=== PATIENT | female | born 1990 | race Two or more races ===

== ENCOUNTER 2020-07-19 19:23 | Emergency (ER) | payer OTHER ==
[~2020-07-19] VITALS: Ht 157.5 cm; Wt 65.8 kg
--- NOTE | 2020-07-19 19:30 | NUR ---
pt came to the er c/o lightheadedness, dizziness, and palpitations x 1 day. pt received covid vaccine x2 days ago. pt aaox4, respirations even and unlabored on ra w/ nad noted. pt connected to the color television console monitor and pox
[2020-07-19] MEDS ORDERED: diphenhydrAMINE HCL 50 MG/ML VIAL ONE (19:39)
--- NOTE | 2020-07-19 19:57 | NUR ---
BLOOD COLLECTED AND SENT TO LAB
--- NOTE | 2020-07-19 19:58 | NUR ---
COVID SWAB COLLECTED AND SENT TO LAB
[2020-07-19] MEDS ORDERED: diphenhydrAMINE HCL 50 MG/ML VIAL IV ONE (20:00)
[2020-07-19] MEDS ORDERED: IV NS 0.9% 1,000 ML BAG IV ONE (20:00)
[2020-07-19 20:38] LABS: BASOPHILS % (AUTO) 0.6 % (0.0-2.0); EOSINOPHILS % (AUTO) 2.4 % (0.0-6.0); HEMATOCRIT 43 % (33-45); HEMOGLOBIN 14.3 g/dL (11.5-14.8); LYMPHOCYTES # (AUTO) 2.4 /CMM (0.8-4.8); LYMPHOCYTES % (AUTO) 33.8 % (20.0-44.0); MEAN CORPUSCULAR HGB CONC 33 g/dl (31.0-36.0); MEAN CORPUSCULAR VOLUME 87 fL (82-100); MONOCYTES # (AUTO) 0.8 /CMM (0.1-1.30); MONOCYTES % (AUTO) 10.9 % (2.0-12.0); NEUTROPHILS # (AUTO) 3.7 /CMM (1.8-8.9); NEUTROPHILS % (AUTO) 52.3 % (43.0-81.0); PLATELET COUNT (AUTO) 209 /CMM (150-450); RED BLOOD CELL COUNT(AUTO) 4.93 MIL/uL (4.0-5.2)
[2020-07-19 20:43] LABS: CREATININE 0.7 mg/dL (0.6-1.3); POTASSIUM 3.4 mmol/L (3.5-5.1)
[2020-07-19 20:50] LABS: ALBUMIN 3.8 g/dL (3.4-5.0); BILIRUBIN,DIRECT 0.1 mg/dL (0.0-0.2); BILIRUBIN,TOTAL 0.3 mg/dL (0.2-1.0); TOTAL PROTEIN, SERUM 7.9 g/dL (6.4-8.2)
[2020-07-19] MEDS ORDERED: DIPH25TA25 PO (20:51)
[2020-07-19 21:38] VITALS: BP 138/84
== END 2020-07-19 21:40 | disposition home or self-care (01) ==
LOC: ER 19:23
DX: R42 Dizziness and giddiness (principal); Z20.822 Contact with and (suspected) exposure to COVID-19; R00.0 Tachycardia, unspecified; R74.01 Elevation of levels of liver transaminase levels; R03.0 Elevated blood-pressure reading, without diagnosis of hypertension; Z86.16 Personal history of COVID-19
CPT/HCPCS: 36415; 80048; 80076; 82962; 84703; 85025; 93005; 96361; 96374; 99284; C9803; J1200; J7030; U0003

== ENCOUNTER 2020-10-05 11:37 | Emergency (ER) | payer OTHER ==
[~2020-10-05] VITALS: Ht 154.9 cm; Wt 58.1 kg
[~2020-10-05 11:37] MED LIST: DIPH25TA25 PO
[2020-10-05 11:47] VITALS: BP 126/76
--- NOTE | 2020-10-05 12:17 | NUR ---
Patient discharged to home in stable condition. Written and verbal after care instructions given. Patient verbalizes understanding of instruction.
--- NOTE | 2020-10-05 12:17 | NUR ---
covid 19 swab collected and sent to lab
== END 2020-10-05 12:18 | disposition home or self-care (01) ==
LOC: ER 11:46
DX: J02.9 Acute pharyngitis, unspecified (principal); R51.9 Headache, unspecified; Z20.822 Contact with and (suspected) exposure to COVID-19
CPT/HCPCS: 87426; 99283; C9803; U0003